=== PATIENT | male | born 1950 | race Hispanic/Latino ===

== ENCOUNTER → 2020-07-16 | Outpatient (CLI) | payer OTHER ==
[~2020-07-16] MED LIST: AEC81 PO; CITA20TA17 PO; LISI-613 PO; METF-446 PO; MULT-660 PO; PRAV40TA3 PO
== END | disposition home or self-care (01) ==
LOC: RAH 14:52
PROVIDERS: ATTEND Family Medicine
DX: C64.9 Malignant neoplasm of unspecified kidney, except renal pelvis (principal); R10.31 Right lower quadrant pain; D47.2 Monoclonal gammopathy; D72.829 Elevated white blood cell count, unspecified; D46.9 Myelodysplastic syndrome, unspecified
CPT/HCPCS: 76882